=== PATIENT | male | born 1970 | race Caucasian/White ===

== ENCOUNTER → 2018-07-22 | Outpatient (CLI) | payer BC ==
[~2018-07-22] MED LIST: REGADENOSON 0.4 MG/5 ML SYRINGE ONE
== END | disposition home or self-care (01) ==
LOC: CVU 07:08
PROVIDERS: ATTEND Internal Medicine Cardiovascular Disease
DX: I34.0 Nonrheumatic mitral (valve) insufficiency (principal); I37.1 Nonrheumatic pulmonary valve insufficiency; I25.9 Chronic ischemic heart disease, unspecified; I25.10 Atherosclerotic heart disease of native coronary artery without angina pectoris; I10 Essential (primary) hypertension; E78.5 Hyperlipidemia, unspecified
CPT/HCPCS: 0399T; 93306; J2785; 78452; 93017; A9502

== ENCOUNTER 2021-05-03 11:11 | Observation (INO) | payer BC ==
[~2021-05-03] VITALS: Ht 182.9 cm; Wt 122.9 kg
--- NOTE | 2021-05-03 11:17 | NUR ---
EKG in triage.
--- NOTE | 2021-05-03 11:27 | NUR ---
C/O NON RADIATING RIGHT CHEST PAIN SINCE 0900 THIS MORNING. PLACED ON VITALS MONITORS. PT REPORTS HX OF VT 25 YEARS AGO.
[2021-05-03] MEDS ORDERED: ALBU18HF INH (11:34)
[2021-05-03] MEDS ORDERED: BUDE10.2 INH (11:34)
[2021-05-03] MEDS ORDERED: METO50TA82 PO (11:34)
[2021-05-03] MEDS ORDERED: ATOR80TA PO (11:34)
[2021-05-03] MEDS ORDERED: AMLO-150 PO (11:34)
[2021-05-03] MEDS ORDERED: BENA20TA54 PO (11:34)
[2021-05-03] MEDS ORDERED: OXYC-307 PO (11:34)
[2021-05-03] MEDS ORDERED: EZET10TA70 PO (11:34)
[2021-05-03] MEDS ORDERED: METF500T17 PO (11:34)
[2021-05-03] MEDS ORDERED: HYDR-3341 PO (11:34)
[2021-05-03] MEDS ORDERED: ALLO100T30 PO (11:34)
[2021-05-03 12:14] LABS: BASOPHILS % (AUTO) 1 % (0-1); EOSINOPHILS % (AUTO) 2 % (1-7); LYMPHOCYTES % (AUTO) 22 % (22-44); MEAN CORPUSCULAR HEMOGLOBIN 30.3 pg (27.5-34.5); MEAN CORPUSCULAR HGB CONC 33.5 g/dL (33.2-36.2); MEAN PLATELET VOLUME 10.7 fL (7.4-10.4); MONOCYTES % (AUTO) 5 % (2-9); NEUTROPHILS % (AUTO) 70 % (42-75); PLATELET COUNT 257 x10^3/uL (130-400); RED BLOOD COUNT 4.64 x10^6/uL (4.38-5.82); RED CELL DISTRIBUTION WIDTH 13.9 % (9.4-14.8)
[2021-05-03 12:23] LABS: ALANINE AMINOTRANSFERASE 42 U/L (12-78); ALBUMIN 3.6 g/dL (3.4-5.0); ANION GAP 7 mmol/L (5-15); CALCIUM 8.8 mg/dL (8.5-10.1); CHLORIDE 114 mmol/L (98-107)
[2021-05-03 12:27] LABS: ALKALINE PHOSPHATASE 81 U/L (45-117); BILIRUBIN,TOTAL 1.3 mg/dL (0.2-1.0); TOTAL PROTEIN 6.9 g/dL (6.4-8.2); TROPONIN I < 0.015 ng/mL (0.000-0.045)
[2021-05-03] MEDS ORDERED: NITROGLYCERIN SINGLE TAB 0.4 MG SL PRN (13:00)
--- NOTE | 2021-05-03 13:23 | NUR ---
PT STATES CP HAS SUBSIDED, DECLINES NITRO AT THIS TIME.
--- NOTE | 2021-05-03 14:07 | NUR ---
Report to Jean-Pierre FONSECA.
[2021-05-03 14:25] VITALS: BP 145/92
[2021-05-03] MEDS ORDERED: morphine SULFATE 10 MG/ML, 1ML IVPush PRN (14:30)
[2021-05-03] MEDS ORDERED: ONDANSETRON 2MG/ML, 2ML IV PRN (14:30)
[2021-05-03] MEDS ORDERED: ENOXAPARIN 40 MG/0.4 ML SQ SCH (14:30)
[2021-05-03] MEDS ORDERED: HYDROcodone/APAP 5/325 TABLET PO PRN (14:30)
[2021-05-03] MEDS ORDERED: morphine SULFATE 10 MG/ML, 1ML IV PRN (14:30)
[2021-05-03] MEDS ORDERED: VERAPAMIL 2.5 MG/ML, 2ML ONE (15:02)
[2021-05-03] MEDS ORDERED: BIVALIRUDIN 250 MG ONE (15:02)
[2021-05-03] MEDS ORDERED: LIDOCAINE-MPF 1%, 5ML ONE (15:02)
[2021-05-03] MEDS ORDERED: MIDAZOLAM 1 MG/ML, 2ML ONE (15:02)
[2021-05-03] MEDS ORDERED: FENTANYL PF 100 MCG/2ML ONE ×2 (15:02→17:07)
[2021-05-03] MEDS ORDERED: HEPARIN 1,000 UNITS/ML, 10ML ONE (15:03)
[2021-05-03] MEDS: SODIUM CHLORIDE 0.9% 1,000 ML IV SCH ×4 (15:25→21:20)
[2021-05-03] MEDS ORDERED: NITROGLYCERIN 5 MG/ML, 10ML ONE (15:27)
[2021-05-03] MEDS ORDERED: MIDAZOLAM 1 MG/ML, 5ML ONE (15:49)
[2021-05-03] MEDS ORDERED: PRASUGREL 10 MG TABLET ONE (17:13)
[2021-05-03] MEDS ORDERED: BIVALIRUDIN 250 MG in SODIUM CHLORIDE 0.9% 50 ML IV SCH (17:18)
[2021-05-03] MEDS ORDERED: ZOLPIDEM 5MG TABLET PO PRN (17:30)
[2021-05-03 18:27] LABS: TROPONIN I 0.029 ng/mL (0.000-0.045)
[2021-05-03] MEDS ORDERED: NITROGLYCERIN 0.4 MG BOTTLE (25 TABS) SL PRN (18:30)
[2021-05-03] MEDS ORDERED: NITROGLYCERIN 0.4 MG/SPRAY SL PRN (18:30)
[2021-05-03 19:08] VITALS: BP 146/85
[2021-05-03] MEDS ORDERED: ATORVASTATIN 80 MG TABLET PO SCH (21:00)
[2021-05-03] MEDS ORDERED: ALBUTEROL SULFATE 2.5 MG/3 ML ONE (21:57)
[2021-05-03] MEDS ORDERED: ALBUTEROL SULFATE 2.5 MG/3 ML NPPB PRN (22:30)
[2021-05-03 23:41] VITALS: BP 132/73
[2021-05-04 00:46] LABS: TROPONIN I 0.147 ng/mL (0.000-0.045)
[2021-05-04 04:58] LABS: ANION GAP 8 mmol/L (5-15); CALCIUM 7.9 mg/dL (8.5-10.1); CHLORIDE 113 mmol/L (98-107); CREATININE 0.74 mg/dL (0.7-1.3)
[2021-05-04] MEDS ORDERED: POTASSIUM CHLORIDE 20 MEQ TAB.ER.PRT PO ONE (08:00)
[2021-05-04] MEDS ORDERED: ATORVASTATIN 80 MG TABLET PO SCH (08:00)
[2021-05-04 08:22] VITALS: BP 164/113
[2021-05-04] MEDS ORDERED: METOPROLOL SUCCINATE 50 MG TAB.ER.24H PO SCH (08:30)
[2021-05-04] MEDS ORDERED: BENAZEPRIL 20 MG TABLET PO SCH (09:00)
[2021-05-04] MEDS ORDERED: AMLODIPINE 10 MG TAB PO SCH (09:00)
[2021-05-04] MEDS ORDERED: PRASUGREL 10 MG TABLET PO SCH (09:00)
[2021-05-04] MEDS ORDERED: ALLOPURINOL 100 MG TABLET PO SCH (09:00)
[2021-05-04] MEDS ORDERED: EZETIMIBE 10 MG TABLET PO SCH (09:00)
[2021-05-04] MEDS ORDERED: METO-93 PO (11:00)
[2021-05-04] MEDS ORDERED: NITR0.4T28 SL (11:00)
[2021-05-04] MEDS ORDERED: PRAS10TA4 PO (11:00)
[2021-05-04] MEDS ORDERED: ASPI-1027 PO (11:01)
[2021-05-04] MEDS: SODIUM CHLORIDE 0.9% 1,000 ML IV SCH ×2 (11:15)
[2021-05-04] MEDS ORDERED: SPIR25TA PO (11:22)
== END 2021-05-04 13:07 | disposition home or self-care (01) ==
LOC: ED 13:00 → 5SO 13:01 → ED 13:40 → DCLOUNGE 05-04 13:00
PROVIDERS: ADMIT Hospitalist; ATTEND Hospitalist
DX: I25.110 Atherosclerotic heart disease of native coronary artery with unstable angina pectoris (principal); E11.9 Type 2 diabetes mellitus without complications; I10 Essential (primary) hypertension; E78.5 Hyperlipidemia, unspecified; E66.9 Obesity, unspecified; J45.909 Unspecified asthma, uncomplicated; I25.2 Old myocardial infarction; I25.5 Ischemic cardiomyopathy; I25.82 Chronic total occlusion of coronary artery; Z68.37 Body mass index [BMI] 37.0-37.9, adult; Z88.0 Allergy status to penicillin; Z79.899 Other long term (current) drug therapy; Z79.84 Long term (current) use of oral hypoglycemic drugs
CPT/HCPCS: 36415; 71045; 80048; 80053; 83690; 84484; 85025; 93005; 93306; 93356; 93458; 94640; 96361; 96374; 99156; 99157; 99285; C1725; C1769; C1874; C1887; C1894; C9600; G0378; J0583; J1644; J2250; J2270; J3010; J7030; J7613; Q9967